=== PATIENT | male | born 1955 | race African-American/Black ===

== ENCOUNTER 2018-03-12 11:08 | Emergency (ER) | payer BC ==
--- NOTE | 2018-03-12 12:21 | ER ---
Nurse's Notes [facility] Name: Josué Deras Age: 62 yrs Sex: Male : 1955 Arrival Date: 03/12/2018 Time: 11:14 Bed 13 Private MD: Luoie Benton Diagnosis: Dental caries-with Tooth Pain Presentation: 03/12 11:15 Presenting complaint: Patient states: my top gum is throbbing and my mouth is beginning hj to swell; started couple of day ago;. Transition of care: patient was not received from another setting of care. Onset of symptoms was March 12, 2018. Initial Sepsis Screen: Does the patient meet any 2 criteria? No. Patient's initial sepsis screen is negative. Does the patient have a suspected source of infection? No. Patient's initial sepsis screen is negative. Care prior to arrival: None. 11:15 Method Of Arrival: Ambulatory 11:15 Acuity: MONSE 4 hj Triage Assessment: 11:17 General: Appears in no apparent distress. uncomfortable, Behavior is calm, cooperative, hj appropriate for age. Pain: Complains of pain in mouth. Historical: - Allergies: 11:17 No Known Allergies; hj - Home Meds: 11:17 Metformin Oral [Active]; Lisinopril Oral [Active]; hj - PMHx: 11:17 Diabetes - NIDDM; Hypertension; hj - PSHx: 11:17 None; hj - Immunization history:: Adult Immunizations up to date. - Social history:: Smoking status: Patient uses tobacco products. Screenin:48 Abuse screen: Denies threats or abuse. Nutritional screening: No deficits noted. em Tuberculosis screening: No symptoms or risk factors identified. Fall Risk None identified. Assessment: 12:20 General: Appears in no apparent distress. uncomfortable, Behavior is calm, cooperative. em General: Denies fever. Pain: Complains of pain in upper left lateral incisor (#10). Neuro: Level of Consciousness is awake, alert, obeys commands, Oriented to person, place, time, situation. Cardiovascular: Capillary refill < 3 seconds Patient's skin is warm and dry. Respiratory: Airway is patent Respiratory effort is even, unlabored, Respiratory pattern is regular, symmetrical. GI: Abdomen is round non-distended. EENT: Oral mucosa is moist. Poor dentition noted. Dental caries noted in upper left lateral incisor (#10). Derm: Skin is intact, Skin is pink, warm \T\ dry. Musculoskeletal: Range of motion: intact in all extremities. 12:30 Reassessment: Patient appears in no apparent distress at this time. I agree with above iw assessment by Eric Simons LVN. Vital Signs: 11:17 BP 141 / 52; Pulse 77; Resp 18; Temp 97.7(TE); Pulse Ox 98% on R/A; Weight 170.1 kg; hj Height 6 ft. 2 in. (187.96 cm); Pain 8/10; 11:17 Body Mass Index 48.15 (170.10 kg, 187.96 cm) hj ED Course: 11:14 Patient arrived in ED. mr 11:14 Louie Benton MD is Private Physician. mr 11:15 Triage completed. hj 11:17 Arm band placed on left wrist. hj 11:46 Eric Simons LVN is Primary Nurse. em 12:05 Armando Kapoor PA is PHCP. cp 12:05 Shaun Campos MD is Attending Physician. cp 12:18 Dennis Garcia DDS is Referral Physician. cp 12:20 Patient has correct armband on for positive identification. em 12:52 No provider procedures requiring assistance completed. Patient did not have IV access em during this emergency room visit. Administered Medications: No medications were administered Outcome: 12:20 Discharge ordered by MD. cp 12:53 Discharged to home ambulatory. em 12:53 Condition: good 12:53 Discharge instructions given to patient, Instructed on discharge instructions, follow up and referral plans. medication usage, Demonstrated understanding of instructions, follow-up care, medications, Prescriptions given X 2. 12:53 Patient left the ED. em Signatures: César Madina SimonsEric LVN LVN em Judy Weir RN RN iw Asher iTmmons RN RN Armando Kapoor PA PA cp Corrections: (The following items were deleted from the chart) 11:19 11:17 Pulse 77bpm; Resp 18bpm; Pulse Ox 98% RA; Temp 97.7F Temporal; 170.1 kg; Height 6 hj ft. 2 in.; BMI: 48.1; Pain 8/10; hj
--- NOTE | 2018-03-12 12:21 | EDPHYS ---
Physician Documentation [facility] Name: Josué Deras Age: 62 yrs Sex: Male : 1955 Arrival Date: 03/12/2018 Time: 11:14 Bed 13 Private MD: Louie Benton ED Physician Shaun Campos HPI: 03/12 12:11 This 62 yrs old Black Male presents to ER via Ambulatory with complaints of Mouth cp Problem. 12:11 The patient presents with swelling. The problem is located in the upper outer gumline. cp 12:12 Onset: The symptoms/episode began/occurred 2 day(s) ago. Duration: The symptoms are cp continuous, and are steadily getting worse. Associated signs and symptoms: Pertinent negatives: chills, dysphagia, fever, inability to eat. Severity of symptoms: in the emergency department the symptoms are unchanged, despite home interventions. Historical: - Allergies: 11:17 No Known Allergies; hj - Home Meds: 11:17 Metformin Oral [Active]; Lisinopril Oral [Active]; hj - PMHx: 11:17 Diabetes - NIDDM; Hypertension; - PSHx: 11:17 None; hj - Immunization history:: Adult Immunizations up to date. - Social history:: Smoking status: Patient uses tobacco products. ROS: 12:12 Constitutional: Negative for body aches, chills, fever, poor PO intake. cp 12:12 Eyes: Negative for injury, pain, redness, and discharge. cp 12:12 ENT: Positive for dental pain, Gum pain Negative for drainage from ear(s), ear pain, rhinorrhea, sinus congestion, sore throat, difficulty swallowing, difficulty handling secretions. 12:12 Neck: Negative for pain with movement, pain at rest, stiffness, swollen nodes. 12:12 Cardiovascular: Negative for chest pain. 12:12 Respiratory: Negative for cough, shortness of breath, wheezing. 12:12 Abdomen/GI: Negative for abdominal pain, nausea, vomiting, and diarrhea. 12:12 Skin: Negative for cellulitis, rash. 12:12 Neuro: Negative for dizziness, headache, weakness. 12:12 All other systems are negative. Exam: 12:14 Head/Face: Normocephalic, atraumatic. cp 12:14 Constitutional: The patient appears in no acute distress, alert, awake, non-toxic, well developed, well nourished. 12:14 Eyes: Periorbital structures: appear normal, Conjunctiva: normal, no exudate, no injection, Sclera: no appreciated abnormality, Lids and lashes: appear normal, bilaterally. 12:14 ENT: External ear(s): are unremarkable, Nose: is normal, Mouth: Lips: moist, Oral mucosa: moist, Gums: swollen, on the gums, abscess, is not appreciated, Posterior pharynx: Airway: no evidence of obstruction, patent, Tonsils: are normal in appearance, Uvula: midline, non-edematous, no erythema, swelling, is not appreciated, erythema, is not appreciated, exudate, is not appreciated, Dental exam: abscess, is not appreciated, dental caries, that is severe, diffusely, fractured teeth are noted, diffusely, missing teeth, diffusely, pain, that is moderate, specifically in the upper left lateral incisor (#10), Voice: is normal. 12:14 Neck: ROM/movement: is normal, is supple, without pain, no range of motions limitations, no meningismus, no nuchal rigidity, Lymph nodes: no appreciated lymphadenopathy. 12:14 Chest/axilla: Inspection: normal. 12:14 Cardiovascular: Rate: normal. 12:14 Respiratory: the patient does not display signs of respiratory distress, Respirations: normal, no use of accessory muscles, no retractions, no splinting, no tachypnea, labored breathing, is not present. 12:14 Abdomen/GI: Exam negative for discomfort, distension, guarding, Inspection: obese 12:14 Skin: cellulitis, is not appreciated, no rash present. cp Vital Signs: 11:17 BP 141 / 52; Pulse 77; Resp 18; Temp 97.7(TE); Pulse Ox 98% on R/A; Weight 170.1 kg; hj Height 6 ft. 2 in. (187.96 cm); Pain 8/10; 11:17 Body Mass Index 48.15 (170.10 kg, 187.96 cm) hj MDM: 12:05 Patient medically screened. cp 12:19 Data reviewed: vital signs, nurses notes, and as a result, I will discharge patient. cp 12:19 Counseling: I had a detailed discussion with the patient and/or guardian regarding: the cp historical points, exam findings, and any diagnostic results supporting the discharge/admit diagnosis, the need for outpatient follow up, maxillary and facial surgeon, to return to the emergency department if symptoms worsen or persist or if there are any questions or concerns that arise at home. Administered Medications: No medications were administered Disposition: 16:51 Co-signature as Attending Physician, Shaun Campos MD. rn Disposition: 03/12/18 12:20 Discharged to Home. Impression: Dental caries - with Tooth Pain. - Condition is Stable. - Discharge Instructions: Dental Pain. - Prescriptions for Clindamycin HCl 150 mg Oral Capsule - take 2 capsule by ORAL route every 8 hours for 10 days; 60 capsule. Naprosyn 500 mg Oral Tablet - take 1 tablet by ORAL route 2 times per day take with food; 20 tablet. - Medication Reconciliation Form, Thank You Letter, Antibiotic Education, Prescription Opioid Use form. - Follow up: Dennis Garcia DDS; When: 2 - 3 days; Reason: Recheck today's complaints. - Problem is new. - Symptoms are unchanged. Signatures: Eric Simons, [employer] Shaun Caraballo MD MD rn Joaquin, Henry, RN RN hj Page, Corey, PA PA cp Corrections: (The following items were deleted from the chart) 12:53 12:20 03/12/2018 12:20 Discharged to Home. Impression: Dental caries - with Tooth Pain. em Condition is Stable. Forms are Medication Reconciliation Form, Thank You Letter, Antibiotic Education, Prescription Opioid Use. Follow up: Dennis Garcia; When: 2 - 3 days; Reason: Recheck today's complaints. Problem is new. Symptoms are unchanged. cp
== END 2018-03-12 12:53 | disposition home or self-care (01) ==
LOC: ER 11:08
DX: K02.9 Dental caries, unspecified (principal); I10 Essential (primary) hypertension; E11.9 Type 2 diabetes mellitus without complications; Z72.0 Tobacco use
CPT/HCPCS: 99282

== ENCOUNTER 2022-09-13 20:22 | Inpatient (IN) | payer BC, OTHER, SELFPAY ==
--- OUTSIDE RECORDS SUMMARY | 2022-09-13 20:26 | XMS REPORT | Continuity of Care Document ---
:1955 Author Organization [facility] t Address [address] [place] [address] Care Team Providers Name Role Phone ALBERT VEGAS Attending Clinician Unavailable Problems This patient has no known problems. Allergies, Adverse Reactions, Alerts This patient has no known allergies or adverse reactions. Medications This patient has no known medications. Procedures This patient has no known procedures. Encounters Start End Encounter Admission Attending Care Care Encounter Source Date/Time Date/Time Type Type Clinicians Facility Department ID 2022-08-16 2022-08-16 Emergency ER ELYSIA VEGAS [facility] [id number] 13:01:00 18:08:00 ALBERT [id number] Critical access hospital 2022-08-16 2022-08-16 emergency [id number] 13:01:00 18:08:00 [id number] [phone] [id number] Results This patient has no known results.
[2022-09-13 21:21] LABS: Protime INR 1.15
[2022-09-13 21:34] LABS: Absolute Lymphocytes (CBC) 1.5 K/uL (0.7-4.9); Hematocrit 38.2 % (39.6-49.0); Lymphocytes % 26.4 % (15.3-44.8); MPV 9.5 fL (7.6-11.3); RBC Red Blood Cell Count 3.98 M/uL (4.33-5.43)
--- NOTE | 2022-09-13 21:40 | RAD REPORT ---
EXAM DESCRIPTION: RAD - Chest Single View - 09/13/2022 9:31 pm CLINICAL HISTORY: Cough Chest pain. COMPARISON: No comparisons FINDINGS: Portable technique limits examination quality. Moderate bilateral pulmonary opacities are present likely pulmonary edema. The heart is moderately en larged. No displaced fractures. IMPRESSION: Moderate CHF versus volume overload pattern.
[2022-09-13 22:38] LABS: SARS-COV-2 RT PCR NEGATIVE (NEGATIVE)
[2022-09-13 23:47] LABS: Albumin 3.4 g/dL (3.4-5.0); Bilirubin Direct 0.3 mg/dL (0-0.2); Bilirubin Total 0.7 mg/dL (0.2-1.0); Potassium 4.2 mmol/L (3.5-5.1); Protein, Total 9.1 g/dL (6.4-8.2); Troponin High Sensitivity 30.7 pg/mL (<58.9)
[2022-09-13] MEDS ORDERED: ALBUTEROL 2.5 MG/3 ML NEB SOL ONE (23:55)
[2022-09-13] MEDS ORDERED: CEFTRIAXONE 1000 MG/VIAL ONE (23:55)
[2022-09-13] MEDS ORDERED: METHYLPREDNISOLONE 125 MG INJ ONE (23:55)
[2022-09-13] MEDS ORDERED: IPRATROPIUM BROM 0.5MG/2.5ML ONE (23:55)
[2022-09-14] MEDS ORDERED: FUROSEMIDE 20 MG/ 2ML VIAL ONE (00:36)
--- NOTE | 2022-09-14 00:52 | EDPHYS ---
Physician Documentation [facility] Name: Josué Deras Age: 66 yrs Sex: Male : 1955 Arrival Date: 09/13/2022 Time: 20:28 Bed 18 Private MD: ED Physician Wiliam Ivey HPI: 09/13 20:48 This 66 yrs old Black Male presents to ER via Ambulatory with complaints of Shortness sp3 Of Breath, Congestion. 20:48 This 66 yrs old Black Male presents to ER via Ambulatory with complaints of Shortness sp3 Of Breath, Congestion. 20:48 66-year-old male with history of diabetes and hypertension presents to the ED with sp3 2-day history of cough, congestion and mild shortness of breath with feelings of "feeling ill". He denies chest pain, back pain, abdominal pain, epigastric pain, jaw pain, left arm pain, or any other anginal equivalents at this time. No history of known CAD/ACS or prior RI history. Denies fever but does have upper respiratory congestion and productive cough. No known sick contacts.. Historical: - Allergies: 09/14 07:19 No Known Allergies; ll1 - PMHx: 09/13 20:32 Diabetes - NIDDM; Hypertension; iw 09/14 01:07 Asthma; kl - Immunization history:: Adult Immunizations up to date. - Social history:: Smoking status: Patient denies any tobacco usage or history of. ROS: 09/13 20:52 Constitutional: Negative for fever, chills, and weight loss, Eyes: Negative for injury, sp3 pain, redness, and discharge, Neck: Negative for injury, pain, and swelling, Cardiovascular: Negative for chest pain, palpitations, and edema, Abdomen/GI: Negative for abdominal pain, nausea, vomiting, diarrhea, and constipation, Back: Negative for injury and pain, MS/Extremity: Negative for injury and deformity, Skin: Negative for injury, rash, and discoloration, Neuro: Negative for headache, weakness, numbness, tingling, and seizure, Psych: Negative for depression, anxiety, suicide ideation, homicidal ideation, and hallucinations, Allergy/Immunology: Negative for hives, rash, and allergies, Endocrine: Negative for neck swelling, polydipsia, polyuria, polyphagia, and marked weight changes. All other systems are negative. Exam: 20:54 Constitutional: This is a well developed, well nourished patient who is awake, alert, sp3 and in no acute distress. Head/Face: Normocephalic, atraumatic. Eyes: Pupils equal round and reactive to light, extra-ocular motions intact. Lids and lashes normal. Conjunctiva and sclera are non-icteric and not injected. Cornea within normal limits. Periorbital areas with no swelling, redness, or edema. ENT: Nares patent. No nasal discharge, no septal abnormalities noted. External auditory canals are clear. Oropharynx with no redness, swelling, or masses, exudates, or evidence of obstruction, uvula midline. Mucous membranes moist. Neck: Trachea midline, no thyromegaly or masses palpated, and no cervical lymphadenopathy. Supple, full range of motion without nuchal rigidity, or vertebral point tenderness. No Meningismus. Chest/axilla: Normal chest wall appearance and motion. Nontender with no deformity. No lesions are appreciated. Cardiovascular: Regular rate and rhythm with a normal S1 and S2. No gallops, murmurs, or rubs. Normal PMI, no JVD. No pulse deficits. Abdomen/GI: Soft, non-tender, with normal bowel sounds. No distension or tympany. No guarding or rebound. No evidence of tenderness throughout. Back: No spinal tenderness. No costovertebral tenderness. Full range of motion. Neuro: Awake and alert, GCS 15, oriented to person, place, time, and situation. Cranial nerves II-XII grossly intact. Motor strength 5/5 in all extremities. Sensory grossly intact. Cerebellar exam normal. Normal gait. Psych: Awake, alert, with orientation to person, place and time. Behavior, mood, and affect are within normal limits. 20:54 Respiratory: Bilateral rhonchi and mild wheezing noted. Pulse oxygenation on room air is 96%. Respiratory rate is 18.. 20:54 Musculoskeletal/extremity: Mild bilateral dependent edema noted nonpitting in nature.. 20:57 ECG was reviewed by the Attending Physician. EKG demonstrates normal sinus rhythm at 60 sp3 bpm with normal intervals, normal QRS, normal axis, nonspecific diffuse ST/T changes without evidence of acute ischemia. Vital Signs: 20:31 BP 176 / 67; Pulse 68; Resp 22; Temp 98.0; Pulse Ox 91% on R/A; Weight 174.63 kg; iw Height 6 ft. 2 in. (187.96 cm); 21:48 BP 188 / 94; Pulse 63; Resp 20; Pulse Ox 94% on R/A; tp1 22:40 BP 189 / 84; Pulse 74; Resp 20; Pulse Ox 96% on R/A; tp1 23:51 BP 164 / 74; Pulse 63; Resp 22; Pulse Ox 98% on 3 lpm NC; kl 09/14 01:06 BP 181 / 72; Pulse 68; Resp 24; Pulse Ox 95% on R/A; kl 02:17 BP 190 / 71; Pulse 73; Resp 18 S; Pulse Ox 94% on 3 lpm NC; as6 04:43 BP 176 / 67; Pulse 61; Resp 22; Temp 98.5(TE); Pulse Ox 92% on R/A; jb4 05:15 Pulse 59; Resp 18; Pulse Ox 98% on R/A; jb4 07:04 BP 184 / 69; Pulse 65; Resp 18; Pulse Ox 99% ; ll1 09/13 20:31 Body Mass Index 49.43 (174.63 kg, 187.96 cm) iw MDM: 09/13 20:48 Patient medically screened. sp3 20:55 Data reviewed: vital signs, nurses notes. ED course: 66-year-old male with diabetes and sp3 hypertension presents with shortness of breath and upper respiratory symptoms. Differential diagnosis includes influenza, COVID, bronchitis, pneumonia, CHF. I am not highly suspicious for ACS, ST elevation RI, TAD, sepsis, shock, or any other critical findings including vascular abnormality. Disposition will be based on work-up which will include chest x-ray, EKG, laboratory values and nebulizers as needed once initial chest x-ray is reviewed.. 09/14 00:47 ED course: Patient now admits to also having asthma history. This is consistent with sp3 his clinical presentation. Likely has a mixed picture with asthma exacerbation coupled with upper respiratory infection along with some mild pulmonary edema as evident on x-ray and clinical presentation. BNP value is still only 600 there for only 20 mg 6 has been given and we will start antibiotics as well as serial nebulizers and light dose of steroids. Patient will need criteria for 23-hour observation given the fact that his room air pulse ox has been varying between 88 and 90% on room air. Work of breathing is also slightly increased and respiratory rate is in the 20-24 range.. 09/13 20:48 Order name: Basic Metabolic Panel; Complete Time: 23:51 3 09/13 20:48 Order name: CBC with Diff; Complete Time: 22:15 3 09/13 20:48 Order name: LFT's; Complete Time: 23:51 3 09/13 20:48 Order name: NT PRO-BNP; Complete Time: 23:51 3 09/13 20:48 Order name: PT-INR; Complete Time: 22:15 3 09/13 20:48 Order name: Troponin HS; Complete Time: 23:51 3 09/13 21:31 Order name: COVID-19/FLU A+B; Complete Time: 23:51 EDNC 09/14 06:18 Order name: Basic Metabolic Panel EDNC 09/14 06:18 Order name: Creatine Phosphokinase EDNC 09/14 06:18 Order name: CKMB Creatine Kinase MB EDNC 09/14 06:18 Order name: Troponin High Sensitivity EDNC 09/14 06:18 Order name: Lipid Profile EDNC 09/13 20:48 Order name: XRAY Chest (1 view); Complete Time: 22:15 3 09/13 20:48 Order name: EKG; Complete Time: 20:48 3 09/13 20:48 Order name: Cardiac monitoring; Complete Time: 20:52 3 09/13 20:48 Order name: EKG - Nurse/Tech; Complete Time: 20:52 3 09/13 20:48 Order name: IV Saline Lock; Complete Time: 21:10 3 09/13 20:48 Order name: Labs collected and sent; Complete Time: 21:10 3 09/14 06:18 Order name: Thyroid Stimulating Hormone EDNC 09/14 06:18 Order name: Hemoglobin A1c EDNC 09/14 06:18 Order name: CBC with Automated Diff EDNC 09/13 20:48 Order name: O2 Per Protocol; Complete Time: 20:52 3 09/13 20:48 Order name: O2 Sat Monitoring; Complete Time: 20:52 sp3 Administered Medications: 00:00 Drug: Rocephin - (cefTRIAXone) 1 grams Route: IVPB; Infused Over: 30 mins; Site: right hand; 01:06 Follow up: Response: No adverse reaction kl 02:16 Follow up: Response: No adverse reaction; IV Status: Completed infusion; IV Intake: 10dign6 00:03 Drug: DuoNeb (albuterol 2.5 mg, ipratropium 0.5 mg) (3:1) (2.5 mg - 0.5 mg) 3 ml Route: kl Nebulizer; 01:06 Follow up: Response: Wheezing diminished kl 00:03 Drug: SOLU-Medrol (methylPrednisoLONE) 60 mg Route: IVP; Site: right hand; kl 01:06 Follow up: Response: No adverse reaction; Wheezing diminished kl 00:40 Drug: Lasix (furosemide) 20 mg Route: IVP; Site: right jugular; kl 02:16 Follow up: Response: No adverse reaction as6 01:05 Drug: Zithromax (azithromycin) 500 mg Route: IVPB; Infused Over: 1 hrs; Site: right kl hand; 02:16 Follow up: Response: No adverse reaction; IV Status: Completed infusion; IV Intake: as6 250ml 01:05 Drug: DuoNeb (albuterol 2.5 mg, ipratropium 0.5 mg) (3:1) (2.5 mg - 0.5 mg) 3 ml Route: kl Nebulizer; 02:16 Follow up: Response: No adverse reaction as6 05:07 Drug: Albuterol 2.5 mg Route: Inhalation; jb4 05:15 Follow up: Pulse 59 bpm; Resp 18 bpm; Pulse Ox 98% RA; Response: No adverse reaction; jb4 Wheezing unchanged Disposition Summary: 09/14/22 00:52 Hospitalization Ordered Hospitalization Status: Observation sp3 Provider: Champ Campos spShahram Condition: Stable sp3 Problem: new sp3 Symptoms: have worsened sp3 Bed/Room Type: Standard sp3 Location: Telemetry/MedSurg (observation)(09/14/22 05:20) Room Assignment: 212(09/14/22 05:20) Diagnosis - Asthma exacerbation, bronchitis, pulmonary edema sp3 Forms: - Medication Reconciliation Form sp3 - SBAR form sp3 Signatures: Dispatcher [employer] Laverne Sargent RN RN kl Webb, Martha, RN RN Judy Weir RN RN Amarjit Gibson RN RN jb4 Osabldo Mims RN RN ll1 Wiliam Ivey MD MD sp3 Hira Gardner RN as6 Corrections: (The following items were deleted from the chart) 09/13 21:31 20:48 SARS-COV-2 Antigen Rapid+I.LAB.BRZ ordered. EDMS EDMS 09/14 01:01 00:52 Telemetry/MedSurg (observation) sp3 mw 01:01 00:52 sp3 mw 05:20 01:01 [facility] ER HOLD mw mw 05:20 01:01 ERHOLD- mw mw 06:18 09/13 20:48 Influenza Screen (A \\T\\ B)+BA.LAB.BRZ ordered. EDMS EDMS
--- NOTE | 2022-09-14 00:52 | ER ---
Nurse's Notes [facility] Name: Josué Deras Age: 66 yrs Sex: Male : 1955 Arrival Date: 09/13/2022 Time: 20:28 Bed 18 Private MD: Diagnosis: Asthma exacerbation, bronchitis, pulmonary edema Presentation: 09/13 20:31 Chief complaint: Patient states: short of breath and congestion since yesterday. iw Coronavirus screen: Vaccine status: Patient reports receiving the 2nd dose of the covid vaccine. Client denies travel out of the [place] in the last 14 days. Ebola Screen: Patient negative for fever greater than or equal to 101.5 degrees Fahrenheit, and additional compatible Ebola Virus Disease symptoms Patient denies exposure to infectious person. Patient denies travel to an Ebola-affected area in the 21 days before illness onset. Initial Sepsis Screen: Does the patient meet any 2 criteria? No. Patient's initial sepsis screen is negative. Does the patient have a suspected source of infection? No. Patient's initial sepsis screen is negative. Risk Assessment: Do you want to hurt yourself or someone else? Patient reports no desire to harm self or others. 20:31 Method Of Arrival: Ambulatory iw 20:31 Acuity: MONSE 3 iw 23:50 Note pt O2 sat decreased to 88% with activity respirations 22 pt placed on 2 liters NC. kl 09/14 02:17 Onset of symptoms was September 12, 2022. as6 Triage Assessment: 09/13 20:32 General: Appears uncomfortable, obese, Behavior is calm, cooperative, appropriate for iw age. Pain: Denies pain. Respiratory: Reports shortness of breath at rest on exertion cough that is productive, Onset: The symptoms/episode began/occurred gradually, the patient has moderate shortness of breath. Historical: - Allergies: 09/14 07:19 No Known Allergies; ll1 - PMHx: 09/13 20:32 Diabetes - NIDDM; Hypertension; iw 09/14 01:07 Asthma; kl - Immunization history:: Adult Immunizations up to date. - Social history:: Smoking status: Patient denies any tobacco usage or history of. Screenin/08 21:11 Abuse screen: Denies threats or abuse. Denies injuries from another. Nutritional tp1 screening: No deficits noted. Tuberculosis screening: No symptoms or risk factors identified. Fall Risk None identified. Assessment: 20:40 General: Appears in no apparent distress. uncomfortable, Behavior is calm, cooperative. tp1 Pain: Denies pain. Neuro: Level of Consciousness is awake, alert, obeys commands, Oriented to person, place, time, situation. Cardiovascular: Denies chest pain, Patient's skin is warm and dry. Rhythm is sinus rhythm. Respiratory: Reports shortness of breath cough that is non-productive, Airway is patent Respiratory effort is even, unlabored, Breath sounds with wheezes bilaterally. GI: Abdomen is obese, Abd is soft and non tender Patient currently denies diarrhea, nausea, vomiting. : No signs and/or symptoms were reported regarding the genitourinary system. EENT: Reports nasal congestion. Derm: Skin is pink, warm \T\ dry. Musculoskeletal: Circulation, motion, and sensation intact. 21:48 Reassessment: Patient appears in no apparent distress at this time. No changes from iw previously documented assessment. Patient and/or family updated on plan of care and expected duration. Pain level reassessed. Patient is alert, oriented x 3, equal unlabored respirations, skin warm/dry/pink. Patient denies pain at this time. 22:40 Reassessment: Patient appears in no apparent distress at this time. No changes from tp1 previously documented assessment. Patient and/or family updated on plan of care and expected duration. Pain level reassessed. Patient denies pain at this time. 23:50 General: Appears distressed, uncomfortable. Respiratory: Reports labored breathing kl Breath sounds with wheezes bilaterally. 09/14 02:03 Reassessment: Pt resting in bed with eyes closed, respirations are even and unlabored jb4 after breathing treatment. 04:40 Reassessment: Patient appears in no apparent distress at this time. Patient and/or jb4 family updated on plan of care and expected duration. Pain level reassessed. Patient is alert, oriented x 3, equal unlabored respirations, skin warm/dry/pink. 0500 labs drawn. Pt wheezing, admitting provider notified. 06:00 Reassessment: Pt is resting in bed with eyes closed, respirations are even and jb4 unlabored with no s/s of pain or distress noted. 06:51 Reassessment: Patient appears in no apparent distress at this time. No changes from jb4 previously documented assessment. Patient and/or family updated on plan of care and expected duration. Pain level reassessed. 07:00 Reassessment: No changes from previously documented assessment. Report received from 1 roofer applicator RN. Vital Signs: 09/13 20:31 BP 176 / 67; Pulse 68; Resp 22; Temp 98.0; Pulse Ox 91% on R/A; Weight 174.63 kg; iw Height 6 ft. 2 in. (187.96 cm); 21:48 BP 188 / 94; Pulse 63; Resp 20; Pulse Ox 94% on R/A; tp1 22:40 BP 189 / 84; Pulse 74; Resp 20; Pulse Ox 96% on R/A; tp1 23:51 BP 164 / 74; Pulse 63; Resp 22; Pulse Ox 98% on 3 lpm NC; kl 09/14 01:06 BP 181 / 72; Pulse 68; Resp 24; Pulse Ox 95% on R/A; kl 02:17 BP 190 / 71; Pulse 73; Resp 18 S; Pulse Ox 94% on 3 lpm NC; as6 04:43 BP 176 / 67; Pulse 61; Resp 22; Temp 98.5(TE); Pulse Ox 92% on R/A; jb4 05:15 Pulse 59; Resp 18; Pulse Ox 98% on R/A; jb4 07:04 BP 184 / 69; Pulse 65; Resp 18; Pulse Ox 99% ; ll1 09/13 20:31 Body Mass Index 49.43 (174.63 kg, 187.96 cm) iw ED Course: 09/13 20:28 Patient arrived in ED. ja2 20:32 Triage completed. iw 20:32 Arm band placed on left wrist. iw 20:34 Wiliam Ivey MD is Attending Physician. sp3 20:37 Tita Mcmullen, RN is Primary Nurse. tp1 20:40 Patient has correct armband on for positive identification. Bed in low position. Call tp1 light in reach. 21:11 No provider procedures requiring assistance completed. Inserted saline lock: 20 gauge tp1 in right wrist, using aseptic technique. Blood collected. 21:33 XRAY Chest (1 view) In Process Unspecified. EDMS 23:15 Lab(s) recollected, by me, sent to lab. 09/14 00:51 Champ Campos MD is Hospitalizing Provider. sp3 02:17 Patient admitted, IV remains in place. as6 Administered Medications: 00:00 Drug: Rocephin - (cefTRIAXone) 1 grams Route: IVPB; Infused Over: 30 mins; Site: right kl hand; 01:06 Follow up: Response: No adverse reaction kl 02:16 Follow up: Response: No adverse reaction; IV Status: Completed infusion; IV Intake: 19lnmm2 00:03 Drug: DuoNeb (albuterol 2.5 mg, ipratropium 0.5 mg) (3:1) (2.5 mg - 0.5 mg) 3 ml Route: kl Nebulizer; 01:06 Follow up: Response: Wheezing diminished kl 00:03 Drug: SOLU-Medrol (methylPrednisoLONE) 60 mg Route: IVP; Site: right hand; kl 01:06 Follow up: Response: No adverse reaction; Wheezing diminished kl 00:40 Drug: Lasix (furosemide) 20 mg Route: IVP; Site: right jugular; kl 02:16 Follow up: Response: No adverse reaction as6 01:05 Drug: Zithromax (azithromycin) 500 mg Route: IVPB; Infused Over: 1 hrs; Site: right kl hand; 02:16 Follow up: Response: No adverse reaction; IV Status: Completed infusion; IV Intake: as6 250ml 01:05 Drug: DuoNeb (albuterol 2.5 mg, ipratropium 0.5 mg) (3:1) (2.5 mg - 0.5 mg) 3 ml Route: kl Nebulizer; 02:16 Follow up: Response: No adverse reaction as6 05:07 Drug: Albuterol 2.5 mg Route: Inhalation; jb4 05:15 Follow up: Pulse 59 bpm; Resp 18 bpm; Pulse Ox 98% RA; Response: No adverse reaction; jb4 Wheezing unchanged Medication: 02:17 VIS not applicable for this client. as6 Intake: 02:16 IV: 50ml; Total: 50ml. as6 02:16 IV: 250ml; Total: 300ml. as6 Outcome: 00:52 Decision to Hospitalize by Provider. sp3 02:17 Admitted to ER Hold. Please see [facility] for further documentation. as6 02:17 Condition: stable 02:17 Instructed on the need for admit. 07:48 Admitted to Med/surg accompanied by nurse, via stretcher, room 212, with oxygen, with ll1 chart, Report called to Rachna Ahuja RN 07:49 Patient left the ED. ll1 Signatures: Dispatcher [employer] EDMS Laverne Mims, RN Judy Grant RN RN iw Bryson, James, RN RN jb4 Osbaldo Mims RN RN ll1 Cari Mane Setul, MD MD sp3 Mckenna Trejo Ashby, RN RN as6 Tita Mcmullen RN RN tp1 Corrections: (The following items were deleted from the chart) 09/13 20:34 20:31 Pulse 68bpm; Resp 22bpm; Pulse Ox 91% RA; Temp 98.0F; 174.63 kg; Height 6 ft. 2 iw in.; BMI: 49.4; iw 21:22 20:40 GI: Abdomen is obese, tp1 iw 21:48 21:21 Respiratory: Reports iw iw 22:41 21:48 BP 188 / 94; Pulse 63bpm; Resp 16bpm; Pulse Ox 94% RA; iw tp1 09/14 04:47 04:43 BP 176 / 6; Pulse 61bpm; Resp 22bpm; Pulse Ox 92% RA; Temp 98.5F Temporal; jb4 jb4 04:48 04:40 Reassessment: Patient appears in no apparent distress at this time. Patient jb4 and/or family updated on plan of care and expected duration. Pain level reassessed. Patient is alert, oriented x 3, equal unlabored respirations, skin warm/dry/pink. 0500 labs drawn jb4
[2022-09-14] MEDS ORDERED: IPRATROPIUM BROM 0.5MG/2.5ML ONE (00:55)
[2022-09-14] MEDS ORDERED: ALBUTEROL 2.5 MG/3 ML NEB SOL ONE ×2 (00:55→05:06)
[2022-09-14] MEDS ORDERED: AZITHROMYCIN 500 MG INJ IVPB ONE (00:55)
[2022-09-14] MEDS ORDERED: NA CHLORIDE 0.9% 250 ML ONE (00:56)
--- NOTE | 2022-09-14 05:53 | P.HP ---
Certification for Inpatient Patient admitted to: Observation With expected LOS: <2 Midnights Patient will require the following post-hospital care: None Practitioner: I am a practitioner with admitting privileges, knowledge of patient current condition, hospital course, and medical plan of care. Services: Services provided to patient in accordance with Admission requirements found in Title 42 Section 412.3 of the Code of Federal Regulations <Richard Curiel - Last Filed: 09/14/22 05:50> Patient History Date of Service: 09/14/22 Reason for admission: Asthma exacerbation, pulmonary edema History of Present Illness: 66-year-old male with history of diabetes mellitus type [id number], hypertension, asthma presents the emergency department for 2 to 3 days of dyspnea, lower extremity edema, dyspnea on exertion. On exam patient was noted to have expiratory wheezing, crackles as well as lower extremity edema. Chest x-ray showed CHF/volume overload pattern, his labs were significant for mildly elevated BNP at 694 troponin 30.7 COVID, influenza negative in the emergency department patient was given nebulizer treatments x2, IV steroids, IV Lasix, IV Rocephin. ED provider wishes to admit under observation for asthma exacerbation/possible new onset CHF. - Past Medical/Surgical History -: HTN -: asthma -: none Psychosocial/ Personal History: Self employed, lives at home with . - Family History Family History: Reviewed- Non-Contributory - Social History Smoking Status: Never smoker Alcohol use: No CD- Drugs: No Caffeine use: Yes Place of Residence: Home <Richard Curiel - Last Filed: 09/14/22 05:50> Date of Service: 09/14/22 <Reji Trujillo - Last Filed: 09/14/22 15:38> Allergies No Known Allergies Allergy (Unverified 03/12/18 12:57) Review of Systems 10-point ROS is otherwise unremarkable Respiratory: Cough, Shortness of Breath, SOB with Excertion, Wheezing Cardiovascular: Edema, As per HPI <Richard Curiel - Last Filed: 09/14/22 05:50> Physical Examination - Physical Exam General: Alert, In no apparent distress, Oriented x3, Obese HEENT: Atraumatic, PERRLA, Mucous membr. moist/pink, EOMI, Sclerae nonicteric Neck: Supple, 2+ carotid pulse no bruit, No LAD, Without JVD or thyroid abnormality Respiratory: Clear to auscultation bilaterally, Normal air movement Cardiovascular: Regular rate/rhythm, Normal S1 S2, Edema Capillary refill: <2 Seconds Gastrointestinal: Normal bowel sounds, No tenderness Musculoskeletal: No tenderness Integumentary: No rashes Neurological: Normal gait, Normal speech, Normal strength at 5/5 x4 extr, Normal tone, Normal affect Lymphatics: No axilla or inguinal lymphadenopathy - Studies Laboratory Data (last 24 hrs) 09/13/22 23:05: Sodium 136, Potassium 4.2, BUN 16, Creatinine 1.02, Glucose 130 H, Total Bilirubin 0.7, AST 50 H, ALT 49, Alkaline Phosphatase 82 09/13/22 21:02: PT 12.6 H, INR 1.15 09/13/22 21:02: WBC 5.70, Hgb 12.6 L, Hct 38.2 L, Plt Count 183 <Richard Curiel - Last Filed: 09/14/22 05:50> - Studies Laboratory Data (last 24 hrs) 09/14/22 04:30: Sodium 137, Potassium 4.3, BUN 15, Creatinine 1.07, Glucose 191 H, Triglycerides 101, Cholesterol 169, HDL Cholesterol 65 H, Cholesterol/HDL Ratio 2.60 09/14/22 04:30: WBC 4.60, Hgb 12.4 L, Hct 36.6 L, Plt Count 175 09/13/22 23:05: Sodium 136, Potassium 4.2, BUN 16, Creatinine 1.02, Glucose 130 H, Total Bilirubin 0.7, AST 50 H, ALT 49, Alkaline Phosphatase 82 09/13/22 21:02: PT 12.6 H, INR 1.15 09/13/22 21:02: WBC 5.70, Hgb 12.6 L, Hct 38.2 L, Plt Count 183 <Reji Trujillo - Last Filed: 09/14/22 15:38> Assessment and Plan - Plan Assessment: Asthma with exacerbation Dyspnea, pedal edema, elevated BNP suspect new onset CHFunknown EF Diabetes mellitus type [id number] Hypertension Plan: Asthma with exacerbation: Continue steroids, bronchodilators, ICS, incentive spirometry. Daily room air saturations. Patient does not have rescue inhaler or ICS at home, will need RX at DC. Dyspnea, pedal edema, elevated BNP suspect new onset CHFunknown EF: Echo ordered, continue low dose Lasix, Lisinopril, add low dose carvedilol as BP is also elevated. Cardiology consult. Will trend troponins. Diabetes mellitus type [id number]: A1c, SSI Hypertension: Continue Lisinopril, add carvedilol. Monitor BP. DVT PPX: Lovenox Code status: Full Discharge Plan: Home Plan to discharge in: 24 Hours - Advance Directives Does patient have a Living Will: No Does patient have a Durable POA for Healthcare: No - Code Status/Comfort Care Code Status Assessed: Yes (Full code) Critical Care: No Time Spent Managing Pts Care (In Minutes): 70 <Richard Curiel - Last Filed: 09/14/22 05:50> Physician Review: Patient Assessed, Agree with Above Assessment and Plan <Reji Trujillo - Last Filed: 09/14/22 15:38>
[2022-09-14 06:23] LABS: Absolute Lymphocytes (CBC) 0.5 K/uL (0.7-4.9); Hematocrit 36.6 % (39.6-49.0); Lymphocytes % 11.8 % (15.3-44.8); MCV 95.5 fL (80-100); MPV 8.7 fL (7.6-11.3); RBC Red Blood Cell Count 3.83 M/uL (4.33-5.43)
[2022-09-14 06:35] LABS: CKMB Creatine Kinase MB 1.2 ng/mL (1.0-3.6); Potassium 4.3 mmol/L (3.5-5.1); Thyroid Stimulating Hormone 0.49 uIU/mL (0.360-3.740); Troponin High Sensitivity 28.2 pg/mL (<58.9)
[2022-09-14] MEDS ORDERED: ACETAMINOPHEN 325 MG TABLET PO PRN (06:38)
[2022-09-14] MEDS: ALBUTEROL 2.5 MG/3 ML NEB SOL NEB SCH ×3 (08:30→20:25)
[2022-09-14] MEDS: FUROSEMIDE 20 MG/ 2ML VIAL IV SCH ×2 (08:55→16:41)
[2022-09-14] MEDS: ENOXAPARIN 40 MG/0.4 ML SQ SCH (08:55)
[2022-09-14] MEDS: lisinopriL 20 MG TAB PO SCH (08:55)
[2022-09-14] MEDS: ASPIRIN EC 81 MG TAB PO SCH (08:55)
[2022-09-14] MEDS ORDERED: DULERA 200/5 (MOMETASONE/FORMOTEROL) INHALER IH SCH (09:00)
[2022-09-14] MEDS ORDERED: predniSONE 20 MG TAB PO SCH (09:00)
[2022-09-14 11:13] VITALS: BMI 49.3
[2022-09-14] MEDS ORDERED: GLUCAGON 1 MG/VIAL IM PRN (15:42)
[2022-09-14] MEDS ORDERED: DEXTROSE 10%-WATER 500 ML IV BAG IV PRN (15:53)
[2022-09-14] MEDS: INSULIN -REGULAR HUMAN 50 UNIT/0.5 ML ML SQ SCH ×2 (16:30→21:53)
[2022-09-14] MEDS: MELATONIN 5 MG TABLET PO PRN (21:40)
--- NOTE | 2022-09-14 23:04 | RAD REPORT ---
EXAM DESCRIPTION: CT - Chest For Pe Angio - 09/14/2022 10:56 pm CLINICAL HISTORY: rule out pe, chest pain, shortness of breath COMPARISON: Chest Single View dated 09/13/2022 TECHNIQUE: Dynamically enhanced 3 mm thick images of the chest were obtained during administration o f approximately 150mL Isovue 370 IV contrast. Coronal and oblique MIP reconstruction images were gene rated and reviewed. Exam utilizes a protocol to evaluate the pulmonary arterial tree. All CT scans are performed using dose optimization technique as appropriate and may include automated exposure control or mA/KV adjustment according to patient size. FINDINGS: No pulmonary emboli are identified. The aorta as imaged shows no acute or suspicious finding. No pericardial thickening or effusion. No infiltrate or mass in the lung parenchyma. No pleural effusion or pleural thickening. Bronchial wa ll thickening is present with no endobronchial lesion. No mediastinal or hilar suspicious masses. No chest wall masses or abnormal axillary lymphadenopathy. IMPRESSION: No pulmonary emboli identified. Bronchial wall thickening is present consistent with bronchitis or other viral infiltrate process.
[2022-09-15] MEDS: ALBUTEROL 2.5 MG/3 ML NEB SOL NEB SCH ×4 (02:00→20:00)
[2022-09-15] MEDS: BENZONATATE 100 MG CAP PO PRN ×2 (02:09→16:27)
[2022-09-15] MEDS: TRAZODONE 50 MG TABLET PO PRN ×2 (02:10→21:35)
--- NOTE | 2022-09-15 06:32 | EKG ---
Test Date: 2022-09-13 Test Time: 20:48:35 General Production Laborer: VICKEY MEASUREMENT RESULTS: Intervals: Rate: 60 TN: 148 QRSD: 102 QT: 416 QTc: 416 [place]: P: 97 TN: 148 QRS: 2 T: 19 INTERPRETIVE STATEMENTS: Normal sinus rhythm with sinus arrhythmia Normal ECG Compared to ECG 12/09/2005 17:12:00 Sinus tachycardia no longer present Intraventricular conduction delay no longer present T-wave abnormality no longer present Possible ischemia no longer present Electronically Signed On 09-15-22 06:30:34 TIN ASSORTER by Britton Quintanilla
--- NOTE | 2022-09-15 06:58 | ECHO ---
HEIGHT: 6 ft 2 in WEIGHT: 384 lb 0 oz DATE OF STUDY: 09/14/[address]: Reji Trujillo MD 2-DIMENSIONAL: YES M.MODE: YES DOPPLER: YES COLOR FLOW: YES TDS: YES PORTABLE: YES DEFINITY: NO BUBBLE STUDY: NO DIAGNOSIS: CONGESTIVE HEART FAILURE CARDIAC HISTORY: CATHERIZATION: SURGERY: PROSTHETIC VALVE: PACEMAKER: MEASUREMENTS (cm) DIASTOLIC (NORMALS) SYSTOLIC (NORMALS) IVSd 1.2 (0.6-1.2) LA Diam 4.0 (1.9-4.0) LVEF 68% LVIDd 4.9 (3.5-5.7) LVIDs 3.0 (2.0-3.5) %FS 38% LVPWd 1.2 (0.6-1.2) Ao Diam 2.9 (2.0-3.7) 2 DIMENSIONAL ASSESSMENT: RIGHT ATRIUM: NORMAL LEFT ATRIUM: NORMAL RIGHT VENTRICLE: NORMAL LEFT VENTRICLE: NORMAL TRICUSPID VALVE: NORMAL MITRAL VALVE: NORMAL PULMONIC VALVE: NORMAL AORTIC VALVE: NORMAL PERICARDIAL EFFUSION: NONE AORTIC ROOT: NORMAL LEFT VENTRICULAR WALL MOTION: NORMAL. DOPPLER/COLOR FLOW: NORMAL. COMMENTS: NORMAL 2D ECHO WITH DOPPLER. NO WALL MOTION ABNORMALITY. NO EFFUSION. TECHNOLOGIST: YOHANA ARELLANO
[2022-09-15] MEDS: INSULIN -REGULAR HUMAN 50 UNIT/0.5 ML ML SQ SCH ×4 (07:30→21:00)
[2022-09-15] MEDS ORDERED: CETIRIZINE HCL 5 MG TABLET PO PRN (07:59)
[2022-09-15] MEDS ORDERED: IPRATROPIUM BROM 0.5MG/2.5ML NEB SCH (08:00)
[2022-09-15] MEDS: ARFORMOTEROL TARTRATE 15 MCG/2 ML VIAL.NEB NEB SCH ×2 (08:37→20:00)
[2022-09-15] MEDS: METHYLPREDNISOLONE 40 MG INJ IV SCH ×2 (08:47→16:27)
[2022-09-15] MEDS: FUROSEMIDE 20 MG/ 2ML VIAL IV SCH ×2 (08:47→16:26)
[2022-09-15] MEDS: ENOXAPARIN 40 MG/0.4 ML SQ SCH (08:47)
[2022-09-15] MEDS: ASPIRIN EC 81 MG TAB PO SCH (08:48)
[2022-09-15] MEDS: lisinopriL 20 MG TAB PO SCH (08:48)
[2022-09-15] MEDS: FLUTICASONE 50MCG NASAL SPRAY NAS SCH (09:00)
[2022-09-15] MEDS ORDERED: HYDRALAZINE HCL 20 MG/ML VIAL IV PRN ×2 (11:18→20:21)
[2022-09-15] MEDS: guaiFENesin 100 MG/5 ML UCUP PO PRN ×2 (11:31→21:35)
[2022-09-15 12:03] LABS: Arterial Blood Carboxyhemoglob 0.9 % (0-1.5); Blood Gas Oxyhemoglobin 66.1 % (94-97); Blood O2 Saturation 67.7 % (92-98.5)
--- NOTE | 2022-09-15 12:47 | P.CNS ---
Date of Consult: 09/15/22 Reason for Consult: Respiratory distress Chief Complaint: Respiratory distress History of Present Illness: Patient is 66 years of age apparently has a history of asthma became sick about 3 days ago cough congestion worsening dyspnea and fatigue does not take any scheduled bronchodilators at home usually does not have a problem is quite short of breath actively wheezing Allergies No Known Allergies Allergy (Unverified 03/12/18 12:57) Home Medications: Lisinopril [Zestril] 20 mg PO DAILY 09/14/22 Metformin ER [Glucophage ER*] 500 mg PO BID 09/14/22 - Past Medical/Surgical History Diabetic: Yes -: HTN -: asthma -: none Psychosocial/ Personal History: Self employed, lives at home with . - Social History Alcohol use: No CD- Drugs: No Caffeine use: No Place of Residence: Home Review of Systems 10-point ROS is otherwise unremarkable General: Weakness Respiratory: Cough, Shortness of Breath Physical Examination Temp Pulse Resp BP Pulse Ox 98.5 F 78 18 189/79 H 95 09/15/22 12:00 09/15/22 12:00 09/15/22 12:00 09/15/22 12:00 09/15/22 12:00 General: Alert, Moderate distress Respiratory: Expiratory wheezes Cardiovascular: No edema, Normal pulses, Regular rate/rhythm Gastrointestinal: Normal bowel sounds, Soft and benign Musculoskeletal: No clubbing, No swelling - Problems (1) Asthma exacerbation Current Visit: Yes Status: Acute Plan: Patient is 66 years of age with a history of asthma admitted with worsening dyspnea of the past 3 days most likely has venous blood gases his PCO2 is elevated we will start patient on BiPAP agree with maximal bronchodilator therapy for now some bilateral interstitial changes on the chest x-ray have underlying diastolic heart failure agree with steroids add Zithromax spironolactone blood pressure is also renal function is normal Qualifiers: Asthma severity: severe
[2022-09-15] MEDS: AZITHROMYCIN 250 MG TAB PO SCH (13:36)
[2022-09-15] MEDS: IPRATROPIUM BROM 0.5MG/2.5ML NEB SCH ×2 (14:30→20:00)
--- NOTE | 2022-09-15 20:18 | P.PN ---
Subjective Date of Service: 09/15/22 Chief Complaint: Respiratory distress No acute events overnight. This morning, his breathing seems to have worsened significantly compared to yesterday. He is audibly wheezing during normal conversation. 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 Review of Systems 10-point ROS is otherwise unremarkable Respiratory: Cough, Dry, Shortness of Breath, SOB with Excertion, Wheezing Physical Examination - Vital Signs Temperature: 98.6 F Blood Pressure: 191/83 Pulse: 112 Respirations: 20 Pulse Ox (%): 96 - Physical Exam General: Alert, Oriented x3, Mild distress HEENT: Atraumatic, PERRLA, Mucous membr. moist/pink, EOMI, Sclerae nonicteric Neck: Supple, JVD not distended Respiratory: Diminished, Expiratory wheezes, Inspiratory wheezes Cardiovascular: Regular rate/rhythm, Normal S1 S2, No gallops, No rubs, No murmurs, Edema (1+ BLE) Gastrointestinal: Normal bowel sounds, Soft and benign, Non-distended, No tenderness, No rebound, No guarding Musculoskeletal: No clubbing Integumentary: No rashes Neurological: Normal speech, Cranial nerves 3-12 intact, Normal affect Assessment And Plan - Plan # Acute Asthma Exacerbation possibly secondary to Viral Bronchitis - Evaluation thus far: - Physical exam = wheezing throughout - Chest x-ray = "moderate CHF versus volume overload pattern." - CT chest angiogram = "no pulmonary emboli identified. Bronchial wall thickening is present consistent with bronchitis or other viral infiltrate process. " - Plan: - Consulted Pulmonary Medicine and spoke with Dr. Andino - recommendations appreciated - Scheduled albuterol + ipratropium and methylprednisolone - Started cetirizine, montelukast, intranasal fluticasone - Consulted Respiratory Therapy - Supplemental oxygen to maintain SpO2 > 92% - Assess inhaler technique one improved from asthma exacerbation # Possible Mild Acute Decompensated Diastolic Congestive Heart Failure with Preserved Ejection Fraction # Hypertensive Urgency - Consult Cardiology and spoke with Dr. Quintanilla - recommendations appreciated - Ordered transthoracic echocardiogram = "normal 2D echo with doppler. no wall motion abnormality. no effusion" - Diuresis with IV furosemide for today - Continue lisinopril, carvedilolol - PRN hydralazine for SBP > 160 mmHg - Daily weights - Strict I/O - Cardiac diet, 2 L fluid restriction, 2 g Na restriction # Type II Diabetes Mellitus - Hgb A1c = 7.0 % - Correction scale insulin ordered Reji Trujillo M.D.
[2022-09-15] MEDS: SPIRONOLACTONE 25 MG TABLET PO SCH (21:34)
[2022-09-15] MEDS: MONTELUKAST 10 MG TAB PO SCH (21:34)
[2022-09-16] MEDS: METHYLPREDNISOLONE 40 MG INJ IV SCH ×2 (01:17→08:33)
[2022-09-16] MEDS: ALBUTEROL 2.5 MG/3 ML NEB SOL NEB SCH ×2 (01:44→07:55)
[2022-09-16] MEDS: IPRATROPIUM BROM 0.5MG/2.5ML NEB SCH ×4 (01:44→19:10)
[2022-09-16] MEDS: ARFORMOTEROL TARTRATE 15 MCG/2 ML VIAL.NEB NEB SCH ×2 (08:06→19:10)
[2022-09-16] MEDS: INSULIN -REGULAR HUMAN 50 UNIT/0.5 ML ML SQ SCH ×4 (08:31→21:16)
[2022-09-16] MEDS: ENOXAPARIN 40 MG/0.4 ML SQ SCH (08:32)
[2022-09-16] MEDS: FUROSEMIDE 20 MG/ 2ML VIAL IV SCH ×2 (08:32→16:50)
[2022-09-16] MEDS: FLUTICASONE 50MCG NASAL SPRAY NAS SCH (08:32)
[2022-09-16] MEDS: SPIRONOLACTONE 25 MG TABLET PO SCH ×2 (08:33→21:15)
[2022-09-16] MEDS: lisinopriL 20 MG TAB PO SCH (08:33)
[2022-09-16] MEDS: AZITHROMYCIN 250 MG TAB PO SCH (08:33)
[2022-09-16] MEDS: ASPIRIN EC 81 MG TAB PO SCH (08:33)
[2022-09-16] MEDS ORDERED: ALBUTEROL 2.5 MG/3 ML NEB SOL NEB PRN ×2 (11:19→14:00)
--- NOTE | 2022-09-16 11:21 | P.PN ---
Subjective Date of Service: 09/16/22 Chief Complaint: Asthma exacerbation Subjective: Improving (Patient is doing much better today is not wheezing is much) Review of Systems General: Weakness Respiratory: Shortness of Breath Physical Examination - Vital Signs Temperature: 97.2 F Blood Pressure: 133/84 Pulse: 66 Respirations: 18 Pulse Ox (%): 97 - Physical Exam General: Alert, In no apparent distress, Oriented x3 Respiratory: Clear to auscultation bilaterally Cardiovascular: No edema, Regular rate/rhythm Assessment And Plan - Current Problems (Diagnosis) (1) Asthma exacerbation Current Visit: Yes Status: Acute Plan: Patient is 66 years of age admitted with asthma exacerbation he has improved significant he can be discharged home tomorrow or with the pharmacy if the Trelegy is covered was will need to substitute it with either Advair or Symbicort low-dose prednisone 10 mg a day follow-up with me next week change agent to p.o. prednisone Qualifiers: Asthma severity: severe Discharge Plan: Home Plan to discharge in: 24 Hours Physician Review: Patient Assessed, Agree with Above Assessment and Plan
[2022-09-16] MEDS ORDERED: GLUCAGON 1 MG/VIAL IM PRN (17:41)
[2022-09-16] MEDS ORDERED: D50W 25 GM/50 ML SYRINGE IV PRN (17:41)
[2022-09-16] MEDS ORDERED: INSULIN -REGULAR HUMAN 50 UNIT/0.5 ML ML SQ ONE (17:42)
--- NOTE | 2022-09-16 19:44 | P.PN ---
Subjective Date of Service: 09/16/22 Chief Complaint: Asthma exacerbation No acute events overnight. This morning, his breathing seems to have improved moderately compared to yesterday. He was able to ambulate around the nursing station, but experienced mild shortness of breath. Will obtain home oxygen evaluation today. Review of Systems 10-point ROS is otherwise unremarkable Respiratory: Cough, Dry, Shortness of Breath, Wheezing Physical Examination - Vital Signs Temperature: 97.4 F Blood Pressure: 142/78 Pulse: 68 Respirations: 19 Pulse Ox (%): 95 Assessment And Plan - Plan - Physical Exam General: Alert, Oriented x3, Mild distress HEENT: Atraumatic, PERRLA, Mucous membr. moist/pink, EOMI, Sclerae nonicteric Neck: Supple, JVD not distended Respiratory: Diminished, faint-end expiratory wheezes Cardiovascular: Regular rate/rhythm, Normal S1 S2, No gallops, No rubs, No murmurs, Edema (1+ BLE) Gastrointestinal: Normal bowel sounds, Soft and benign, Non-distended, No tenderness, No rebound, No guarding Musculoskeletal: No clubbing Integumentary: No rashes Neurological: Normal speech, Cranial nerves 3-12 intact, Normal affect Assessment And Plan - Plan # Acute Asthma Exacerbation possibly secondary to Viral Bronchitis - Evaluation thus far: - Physical exam = wheezing throughout - Chest x-ray = "moderate CHF versus volume overload pattern." - CT chest angiogram = "no pulmonary emboli identified. Bronchial wall thickening is present consistent with bronchitis or other viral infiltrate process. " - Plan: - Consulted Pulmonary Medicine and spoke with Dr. Andino - recommendations appreciated - Scheduled albuterol + ipratropium and methylprednisolone - Started cetirizine, montelukast, intranasal fluticasone - Consulted Respiratory Therapy - Supplemental oxygen to maintain SpO2 > 92% - Assess inhaler technique one improved from asthma exacerbation - I feel that he would benefit from an additional day of bronchodilators and steroids, will re-evaluate for discharge tomorrow - Obtain home oxygen evaluation # Possible Mild Acute Decompensated Diastolic Congestive Heart Failure with Preserved Ejection Fraction # Hypertensive Urgency - Consult Cardiology and spoke with Dr. Quintanilla - recommendations appreciated - Ordered transthoracic echocardiogram = "normal 2D echo with doppler. no wall motion abnormality. no effusion" - Diuresis with IV furosemide for today - Continue lisinopril, carvedilolol - PRN hydralazine for SBP > 160 mmHg - Daily weights - Strict I/O - Cardiac diet, 2 L fluid restriction, 2 g Na restriction # Type II Diabetes Mellitus - Hgb A1c = 7.0 % - Correction scale insulin ordered Reji Trujillo M.D.
[2022-09-16] MEDS: predniSONE 20 MG TAB PO SCH (21:15)
[2022-09-16] MEDS: MONTELUKAST 10 MG TAB PO SCH (21:15)
[2022-09-16] MEDS: TRAZODONE 50 MG TABLET PO PRN (21:15)
[2022-09-16] MEDS: guaiFENesin 100 MG/5 ML UCUP PO PRN (23:45)
[2022-09-16] MEDS: MELATONIN 5 MG TABLET PO PRN (23:45)
[2022-09-17] MEDS: IPRATROPIUM BROM 0.5MG/2.5ML NEB SCH ×2 (01:06→08:14)
[2022-09-17] MEDS: ARFORMOTEROL TARTRATE 15 MCG/2 ML VIAL.NEB NEB SCH (08:14)
--- NOTE | 2022-09-17 08:16 | P.DS ---
Admission Date: 09/15/22 Discharge Date: 09/17/22 Disposition: ROUTINE DISCHARGE Discharge Condition: GOOD Reason for Admission: Asthma exacerbation Consultations: 1. Pulmonary Medicine 2. Cardiology Hospital Course: DIAGNOSES: # Acute Asthma Exacerbation possibly secondary to Viral Bronchitis # Possible Mild Acute Decompensated Diastolic Congestive Heart Failure with Preserved Ejection Fraction # Hypertensive Urgency # Type II Diabetes Mellitus HOSPITAL COURSE: Mr. Josué Deras is a pleasant 66-year-old male with a past medical history significant for type 2 diabetes, asthma, and hypertension who was admitted to the [facility] on 09/15/2022 for shortness of breath. He was admitted to the Medicine service. Upon further evaluation, he was found to have an acute asthma exacerbation with a possible mild acute decompensated congestive heart failure exacerbation. His chest x-ray revealed, "moderate CHF versus volume overload pattern." A CT chest angiogram revealed, "no pulmonary emboli identified. Bronchial wall thickening is present consistent with bronchitis or other viral infiltrate process." A transthoracic echocardiogram revealed, "normal 2D echo with doppler. no wall motion abnormality. no effusion." He was treated with bronchodilators, steroids, cetirizine, montelukast, and furosemide, with significant improvement of his symptoms. Cardiology and Pulmonary Medicine consulted. Over the course of his hospitalization, he improved significantly. He was able to ambulate around the nursing pod without any shortness of breath or wheezing. His case was reviewed with Dr. Andino, who has cleared him for discharge with outpatient follow-up. On 09/17/2022, he was seen on morning rounds and deemed medically stable for discharge. He was discharged with instructions to schedule follow-up appointments with his PCP (Dr. Benton), with Pulmonary Medicine (Dr. Andino), and with Cardiology (Dr. Quintanilla). He was provided prescriptions for furosemide, Trelegy, montelukast, prednisone, and azithromycin. The patient and family members were given the opportunity to ask questions and reported no further questions. Furthermore, all questions were answered to the best of my ability. A copy of this discharge summary will be sent to the above providers to facilitate continuity of care. Today, I personally spent 20 minutes on his case, of which greater than 50% of the time was spent in patient education, counseling, and coordination of care as described above. - Physical Exam General: Alert, Oriented x3, Mild distress HEENT: Atraumatic, PERRLA, Mucous membr. moist/pink, EOMI, Sclerae nonicteric Neck: Supple, JVD not distended Respiratory: Clear to auscultation bilaterally, without wheezes, rales, or rhonchi Cardiovascular: Regular rate/rhythm, Normal S1 S2, No gallops, No rubs, No murmurs, Edema (1+ BLE) Gastrointestinal: Normal bowel sounds, Soft and benign, Non-distended, No tenderness, No rebound, No guarding Musculoskeletal: No clubbing Integumentary: No rashes Neurological: Normal speech, Cranial nerves 3-12 intact, Normal affect Vital Signs/Physical Exam: Temp Pulse Resp BP Pulse Ox 98.2 F 78 20 150/67 H 91 09/17/22 04:00 09/17/22 04:00 09/17/22 04:00 09/17/22 04:00 09/17/22 04:00 Laboratory Data at Discharge: WBC 4.60 K/uL (4.3-10.9) 09/14/22 04:30 Hgb 12.4 g/dL (13.6-17.9) L 09/14/22 04:30 Hct 36.6 % (39.6-49.0) L 09/14/22 04:30 Plt Count 175 K/uL (152-406) 09/14/22 04:30 PT 12.6 SECONDS (9.5-12.5) H 09/13/22 21:02 INR 1.15 09/13/22 21:02 Sodium 137 mmol/L (136-145) 09/14/22 04:30 Potassium 4.3 mmol/L (3.5-5.1) 09/14/22 04:30 BUN 15 mg/dL (7-18) 09/14/22 04:30 Creatinine 1.07 mg/dL (0.55-1.3) 09/14/22 04:30 Glucose 191 mg/dL (74-106) H 09/14/22 04:30 Total Bilirubin 0.7 mg/dL (0.2-1.0) 09/13/22 23:05 AST 50 U/L (15-37) H 09/13/22 23:05 ALT 49 U/L (12-78) 09/13/22 23:05 Alkaline Phosphatase 82 U/L (45-117) 09/13/22 23:05 Triglycerides 101 mg/dL (<150) 09/14/22 04:30 Cholesterol 169 mg/dL (<200) 09/14/22 04:30 HDL Cholesterol 65 mg/dL (40-60) H 09/14/22 04:30 Cholesterol/HDL Ratio 2.60 09/14/22 04:30 Home Medications: RX: Lisinopril [Zestril] 20 mg PO DAILY 09/14/22 RX: Metformin ER [Glucophage ER*] 500 mg PO BID 09/14/22 Fluticasone/Umeclidin/Vilanter [Trelegy Ellipta 200-62.5-25] 1 each IH DAILY 30 Days #30 aer 09/16/22 Furosemide [Lasix] 20 mg PO DAILY #10 tab 09/17/22 RX: Azithromycin Tab [Zithromax*] 250 mg PO DAILY 3 Days #3 tab 09/17/22 RX: Cetirizine HCl [Zyrtec*] 10 mg PO DAILY PRN 09/17/22 RX: Fluticasone [Flonase 50MCG Nasal [place]*] 1 sprays ANIA DAILY btl 09/17/22 RX: Montelukast Sodium 10 mg PO DAILY 6PM #30 tab 09/17/22 RX: predniSONE [Prednisone*] 20 mg PO BID 3 Days #6 tab 09/17/22 New Medications: Furosemide [Lasix] 20 mg PO DAILY #10 tab RX: Montelukast Sodium 10 mg PO DAILY 6PM #30 tab RX: predniSONE [Prednisone*] 20 mg PO BID 3 Days #6 tab Fluticasone/Umeclidin/Vilanter [Trelegy Ellipta 200-62.5-25] 1 each IH DAILY 30 Days #30 aer RX: Azithromycin Tab [Zithromax*] 250 mg PO DAILY 3 Days #3 tab Physician Discharge Instructions: 1. Please call and schedule a follow-up appointment with your PCP (Dr. Benton) in 3-5 days 2. Please call and schedule a follow-up appointment with Pulmonary Medicine (Dr. Andino) in 5-7 days 3. Please call and schedule a follow-up appointment with Cardiology (Dr. Quintanilla) in 5-7 days - Please discuss refilling your Lasix at this appointment Diet: ADA Activity: Ad ed Followup: Slava Andino MD [ACTIVE - CAN ADMIT] - 1 Week Britton Quintanilla MD [ACTIVE - CAN ADMIT] - 1 Week Louie Benton MD [Primary Care Provider] - 1 Week Time spent managing pt's care (in minutes): 20
[2022-09-17] MEDS: lisinopriL 20 MG TAB PO SCH (08:41)
[2022-09-17] MEDS: AZITHROMYCIN 250 MG TAB PO SCH (08:41)
[2022-09-17] MEDS: INSULIN -REGULAR HUMAN 50 UNIT/0.5 ML ML SQ SCH (08:41)
[2022-09-17 08:42] VITALS: BP 155/74
[2022-09-17] MEDS: SPIRONOLACTONE 25 MG TABLET PO SCH (08:42)
[2022-09-17] MEDS: ASPIRIN EC 81 MG TAB PO SCH (08:42)
[2022-09-17] MEDS: predniSONE 20 MG TAB PO SCH (08:42)
[2022-09-17 09:48] VITALS: TEMP 97.1
[2022-09-17 09:53] VITALS: O2SAT 93
--- NOTE | 2022-09-17 23:03 | CON ---
Reason For Consultation: Shortness of breath, elevated troponin, hypertension, and diabetes. History Of Present Illness: Mr. Braeden Rios, has a history of hypertension and diabetes. He came in w ith shortness of breath, presumably secondary to asthma. He weighs 384 pounds. He denied any chest pain, nausea, vomiting, diaphoresis, PND, orthopnea, pedal edema, palpitations, or syncope. He had a troponin of 694, glucose of 491. Chest x-ray showed possible mild failure. He is feeling better no w after inhalation treatment as well as Lasix. Past Medical History: Includes diabetes and hypertension. Allergies: NONE. Review of Systems: Negative. Social History: Negative. Family History: Noncontributory. Medications: Present medications include inhalers, aspirin, Lovenox, Lasix, and lisinopril. Physical Examination: Vital Signs: He weighed 384 pounds. HEENT: Negative. Neck: Supple with no bruit. Chest: Clear. Cardiac: Revealed a regular rhythm and rate. No murmurs, gallops, or rubs. Abdomen: Benign. Extremities: Revealed no clubbing, cyanosis, or edema. Diagnostic Data: Listed earlier. Echocardiogram is pending. Impression And Plan: The patient with multiple cardiac risk factors including hypertension and diabe lucas. I think he has elevated troponin secondary to demand ischemia from hypoxia, possible congestive heart failure, most likely acute diastolic. coronary artery disease, although his sympto ms are more consistent with asthma. We will see what his echocardiogram shows if that looks normal, he can go home on his home medication plus a low-dose Lasix. I will set him up for an outpatient Lloyd martinez down the road. ADRIAN/NAHUM Voice ID: [id number] Report ID: [id number]
== END 2022-09-17 09:44 | disposition home or self-care (01) | DRG 202 ==
LOC: ER 20:22 → 2ND 09-14 06:24 → OBSVTOIN 09-15 13:03
PROVIDERS: ADMIT Internal Medicine; ATTEND Internal Medicine
DX: J45.901 Unspecified asthma with (acute) exacerbation (principal); I50.33 Acute on chronic diastolic (congestive) heart failure; J96.01 Acute respiratory failure with hypoxia; J96.02 Acute respiratory failure with hypercapnia; Z68.42 Body mass index [BMI] 45.0-49.9, adult; I24.8 Other forms of acute ischemic heart disease; E66.9 Obesity, unspecified; I11.0 Hypertensive heart disease with heart failure; I25.10 Atherosclerotic heart disease of native coronary artery without angina pectoris; I16.0 Hypertensive urgency; E11.9 Type 2 diabetes mellitus without complications; J20.8 Acute bronchitis due to other specified organisms; Z79.84 Long term (current) use of oral hypoglycemic drugs; Z79.899 Other long term (current) drug therapy; Z20.822 Contact with and (suspected) exposure to COVID-19
CPT/HCPCS: 0240U; 36415; 71045; 71275; 80048; 80061; 80076; 82550; 82553; 82805; 82947; 83036; 83880; 84443; 84484; 85025; 85379; 85610; 93005; 93306; 94010; 94640; 99285; G0378; J0360; J0456; J1650; J1815; J1940; J2920; J2930; J3535; J7050; J7512; J7605; Q9967